=== PATIENT | female | born 1950 | race Caucasian/White ===

== ENCOUNTER → 2019-05-16 | Day surgery (SDC) | payer OTHER ==
[~2019-05-16] MED LIST: CRESTOR10 MG PO; KETO10TA2 PO
== END | disposition home or self-care (01) ==
LOC: CIR.AMB 08:46
DX: N84.0 Polyp of corpus uteri (principal)

== ENCOUNTER → 2021-11-03 | Outpatient (CLI) | payer OTHER | END | disposition home or self-care (01) | LOC: ASH CLINIC 09:30 | PROVIDERS: ATTEND Emergency Medicine Pediatric Emergency Medicine | DX: Z23 Encounter for immunization (principal); U07.1 COVID-19 ==